=== PATIENT | female | born 1990 | race Caucasian/White ===

== ENCOUNTER 2023-06-05 16:25 | Emergency (ER) | payer BC ==
[~2023-06-05] VITALS: Ht 162.6 cm; Wt 71.2 kg
[2023-06-05 16:30] VITALS: BP_SYST 133; PULSE 79; RESP 19; TEMP 98.2; O2SAT 99
[2023-06-05 18:29] LABS: BILIRUBIN,URINE NEGATIVE (NEGATIVE); BLOOD, URINE 3+ (NEGATIVE); CLARITY/URINE CLOUDY (CLEAR); COLOR,URINE YELLOW (YELLOW); GLUCOSE,URINE NEGATIVE (NEGATIVE); KETONES,URINE NEGATIVE (NEGATIVE); LEUKOCYTE ESTERASE ,URINE TRACE (NEGATIVE); NITRITE, URINE NEGATIVE (NEGATIVE); PH,URINE 6.5 (5.0-8.0); PROTEIN URINE 1+ (NEGATIVE)
[2023-06-05 18:46] VITALS: BP_SYST 133; PULSE 79; RESP 19; TEMP 98.2; O2SAT 99
[2023-06-05 18:51] LABS: BACTERIA,URINE MODERATE /HPF (None Seen); RBC,URINE 20-50 /HPF (0-3)
== END 2023-06-05 18:42 | disposition left against medical advice (07) ==
LOC: SED 16:25
DX: O20.9 Hemorrhage in early pregnancy, unspecified (principal); Z3A.01 Less than 8 weeks gestation of pregnancy; Z53.21 Procedure and treatment not carried out due to patient leaving prior to being seen by health care provider
CPT/HCPCS: 81000; 87086; 99281